=== PATIENT | female | born 1950 | race Caucasian/White ===

== ENCOUNTER 2017-06-08 23:09 | Emergency (ER) | payer BC, MEDICARE ==
--- NOTE | 2017-06-08 23:52 | ED ---
Nausea/Vomiting/Diarrhea HPI - General Chief complaint: Nausea/Vomiting/Diarrhea Stated complaint: Vomiting Time Seen by Provider: 06/08/17 23:27 Source: patient Mode of arrival: ambulatory Limitations: no limitations - History of Present Illness Initial comments: This patient is a 66-year-old woman who presents to be evaluated for which she is referring to as diarrhea. She states she has been having about 3 bowel movements a day that she describes as being very soft but not exactly liquid. She states that she did have rectopexy surgery for prolapse performed at [facility] and this was approximately days ago. The patient states that she is not having abdominal pain. She is not having any concerning signs or symptoms related to her incision site. She does have some perianal irritation after having the bowel movements, that she has been applying an appointment to. The patient did have a course of antibiotics while in the hospital. Patient denies fever or chills, vomiting, abdominal pain, or other symptoms. MD complaint: diarrhea -: days(s) Description of Diarrhea: other (Soft stools) Associated Abdominal Pain: No Worsens with: none Context: history of abdominal surgery - Related Data Previous Rx's Medication Instructions Recorded Nystatin 100,000 Unit/ml Susp 5 ml PO QID #100 ml 06/09/17 [Mycostatin Oral Susp] Allergies Allergy/AdvReac Type Severity Reaction Status Date / Time No Known Allergies Allergy Verified 06/08/17 23:20 Review of Systems ROS Statement: Those systems with pertinent positive or pertinent negative responses have been documented in the HPI. ROS Other: All systems not noted in ROS Statement are negative. Constitutional: Denies: fever, chills ENT: Reports: throat pain Respiratory: Denies: cough, dyspnea Cardiovascular: Denies: chest pain, palpitations, edema, syncope Gastrointestinal: Reports: diarrhea. Denies: abdominal pain, nausea, vomiting, constipation, hematemesis, melena, hematochezia Genitourinary: Denies: dysuria, hematuria Musculoskeletal: Denies: back pain Skin: Denies: rash Neurological: Denies: headache, weakness, numbness Past Medical History Past Medical History: Deep Vein Thrombosis (DVT), Hyperlipidemia Additional Past Medical History / Comment(s): rectal prolapse. osteoporosis. arthritis. environmental allergies. hypothyroidism. History of Any Multi-Drug Resistant Organisms: None Reported Past Surgical History: Hysterectomy, Tubal Ligation Additional Past Surgical History / Comment(s): rectopexy. D&Cx2. bilateral breast biopsy. colonoscopy. varicose veins. Past Psychological History: No Psychological Hx Reported Smoking Status: Never smoker Past Alcohol Use History: None Reported Past Drug Use History: None Reported General Exam Limitations: no limitations General appearance: alert, in no apparent distress Head exam: Present: atraumatic, normocephalic Eye exam: Present: normal appearance. Absent: scleral icterus, conjunctival injection ENT exam: Present: mucous membranes dry Neck exam: Present: normal inspection, full ROM Respiratory exam: Present: normal lung sounds bilaterally. Absent: respiratory distress, wheezes, rales, rhonchi, stridor Cardiovascular Exam: Present: regular rate, normal rhythm, normal heart sounds. Absent: systolic murmur, diastolic murmur, rubs, gallop GI/Abdominal exam: Present: soft. Absent: distended, tenderness, guarding, rebound, rigid, mass Rectal exam: Present: normal inspection Extremities exam: Present: normal inspection, normal capillary refill. Absent: pedal edema, calf tenderness Back exam: Present: normal inspection. Absent: CVA tenderness (R), CVA tenderness (L) Neurological exam: Present: alert Skin exam: Present: warm, dry, intact, normal color. Absent: rash Course Vital Signs 06/08/17 06/09/17 23:14 01:09 Temperature 98.4 F Pulse Rate 99 81 Respiratory 16 18 Rate Blood Pressure 139/63 134/81 O2 Sat by Pulse 100 99 Oximetry Medical Decision Making - Lab Data Result diagrams: 06/08/17 23:31 06/08/17 23:31 Lab Results 06/08/17 06/08/17 06/08/17 Range/Units 00:00 00:00 23:31 WBC 4.6 (3.8-10.6) k/uL RBC 2.95 L (3.80-5.40) m/uL Hgb 9.7 L (11.4-16.0) gm/dL Hct 29.3 L (34.0-46.0) % MCV 99.4 (80.0-100.0) fL MCH 32.8 (25.0-35.0) pg MCHC 33.0 (31.0-37.0) g/dL RDW 15.0 (11.5-15.5) % Plt Count 328 (150-450) k/uL Neutrophils % 67 % Lymphocytes % 19 % Monocytes % 7 % Eosinophils % 5 % Basophils % 0 % Neutrophils # 3.1 (1.3-7.7) k/uL Lymphocytes # 0.9 L (1.0-4.8) k/uL Monocytes # 0.3 (0-1.0) k/uL Eosinophils # 0.2 (0-0.7) k/uL Basophils # 0.0 (0-0.2) k/uL Macrocytosis Slight Sodium (137-145) mmol/L Potassium (3.5-5.1) mmol/L Chloride (98-107) mmol/L Carbon Dioxide (22-30) mmol/L Anion Gap mmol/L BUN (7-17) mg/dL Creatinine (0.52-1.04) mg/dL Est GFR (MDRD) Af Amer (>60 ml/min/1.73 sqM) Est GFR (MDRD) Non-Af (>60 ml/min/1.73 sqM) Glucose (74-99) mg/dL Calcium (8.4-10.2) mg/dL Total Bilirubin (0.2-1.3) mg/dL AST (14-36) U/L ALT (9-52) U/L Alkaline Phosphatase (38-126) U/L Total Protein (6.3-8.2) g/dL Albumin (3.5-5.0) g/dL Stool Occult Blood Negative (Negative) C. difficile (EIA) Intrp Negative (Negative) 06/08/17 Range/Units 23:31 WBC (3.8-10.6) k/uL RBC (3.80-5.40) m/uL Hgb (11.4-16.0) gm/dL Hct (34.0-46.0) % MCV (80.0-100.0) fL MCH (25.0-35.0) pg MCHC (31.0-37.0) g/dL RDW (11.5-15.5) % Plt Count (150-450) k/uL Neutrophils % % Lymphocytes % % Monocytes % % Eosinophils % % Basophils % % Neutrophils # (1.3-7.7) k/uL Lymphocytes # (1.0-4.8) k/uL Monocytes # (0-1.0) k/uL Eosinophils # (0-0.7) k/uL Basophils # (0-0.2) k/uL Macrocytosis Sodium 134 L (137-145) mmol/L Potassium 3.7 (3.5-5.1) mmol/L Chloride 99 (98-107) mmol/L Carbon Dioxide 26 (22-30) mmol/L Anion Gap 9 mmol/L BUN 8 (7-17) mg/dL Creatinine 0.70 (0.52-1.04) mg/dL Est GFR (MDRD) Af Amer >60 (>60 ml/min/1.73 sqM) Est GFR (MDRD) Non-Af >60 (>60 ml/min/1.73 sqM) Glucose 109 H (74-99) mg/dL Calcium 9.6 (8.4-10.2) mg/dL Total Bilirubin 1.1 (0.2-1.3) mg/dL AST 26 (14-36) U/L ALT 44 (9-52) U/L Alkaline Phosphatase 70 (38-126) U/L Total Protein 6.6 (6.3-8.2) g/dL Albumin 4.1 (3.5-5.0) g/dL Stool Occult Blood (Negative) C. difficile (EIA) Intrp (Negative) Disposition Clinical Impression: Diarrhea following gastrointestinal surgery Disposition: HOME SELF-CARE Condition: Good Instructions: Acute Diarrhea (ED) Prescriptions: Nystatin 100,000 Unit/ml Susp [Mycostatin Oral Susp] 5 ml PO QID #100 ml Referrals: Carrillo Dalton MD [Primary Care Provider] - 1-2 days
[2017-06-09 00:08] LABS: Basophils % (A) 0 %; CH 32.5; CHCM 32.9; Eosinophils # (A) 0.2 k/uL (0-0.7); Eosinophils % (A) 5 %; HCT 29.3 % (34.0-46.0); HDW 2.62; HGB 9.7 gm/dL (11.4-16.0); Luc # (Auto) 0.12; Luc % (Auto) 3; Lymphocytes # (A) 0.9 k/uL (1.0-4.8); Lymphocytes % (A) 19 %; MCH 32.8 pg (25.0-35.0); MCV 99.4 fL (80.0-100.0); Macrocytosis Slight; Monocytes # (A) 0.3 k/uL (0-1.0); Monocytes % (A) 7 %; Neutrophils # (A) 3.1 k/uL (1.3-7.7); Neutrophils % (A) 67 %; RBC 2.95 m/uL (3.80-5.40); WBC 4.6 k/uL (3.8-10.6); WBC (Perox) 4.77
[2017-06-09 00:16] LABS: ALT 44 U/L (9-52); AST 26 U/L (14-36); Alkaline Phosphatase 70 U/L (38-126); Anion Gap 9 mmol/L; Blood Urea Nitrogen 8 mg/dL (7-17); Calcium 9.6 mg/dL (8.4-10.2); Carbon Dioxide 26 mmol/L (22-30); Chloride 99 mmol/L (98-107); Glucose 109 mg/dL (74-99); Non-African American GFR(MDRD) >60 (>60 ml/min/1.73 sqM); Potassium 3.7 mmol/L (3.5-5.1); Sodium 134 mmol/L (137-145); Total Bilirubin 1.1 mg/dL (0.2-1.3); Total Protein 6.6 g/dL (6.3-8.2)
[2017-06-09 01:11] VITALS: RESP 18
[2017-06-09 03:00] VITALS: BP 116/71; PULSE 76; TEMP 98.7
== END 2017-06-09 02:55 | disposition home or self-care (01) ==
LOC: EC 23:09
DX: K91.1 Postgastric surgery syndromes (principal)
CPT/HCPCS: 36415; 80053; 82272; 85025; 87045; 87046; 87077; 87186; 87324; 89055; 99284

== ENCOUNTER → 2019-02-19 | Outpatient (CLI) | payer MEDICARE ==
[2019-02-19 09:22] LABS: African American GFR (CKD) >90 (>60 ml/min/1.73 sqM); Blood Urea Nitrogen 9 mg/dL (7-17)
--- NOTE | 2019-02-19 16:28 | CT ---
EXAMINATION TYPE: CT soft tissue neck w con DATE OF EXAM: 02/19/2019 COMPARISON: None HISTORY: Lt neck pain CT DLP: 245.4 mGycm CONTRAST: Patient injected with 100 mL of Isovue 300. TECHNIQUE: Axial images at 3 mm thick sections. Reconstructed images in the coronal plane and sagitt al plane are reviewed. FINDINGS: Limited CT sections are obtained the lung apices. Some mild scarring appears to be at the bilateral lung apices. CT neck: The torus tubarius and fossa of Rosenmuller are normal. Industrial [employer] spaces are normal. Para nasal sinuses and mastoid air cells are clear. Parotid glands appear normal and symmetrical. Submandibular glands, are normal. Parapharyngeal spac es are normal. No suspicious adenopathy is evident. The hypopharynx appears within normal limits. Vocal cord level appear also the time of this exam. Thyroid is not identified. Osseous structures are normal. IMPRESSIONS: 1. No suspicious left neck mass.
== END | disposition home or self-care (01) ==
LOC: RADCTMAIN 08:21
PROVIDERS: ATTEND Otolaryngology
DX: R22.1 Localized swelling, mass and lump, neck (principal); M54.2 Cervicalgia
CPT/HCPCS: 82565; 84520; 70491; 36415; Q9967

== ENCOUNTER → 2019-03-11 | Outpatient (CLI) | payer MEDICARE ==
[2019-03-12 11:39] LABS: Cow's Milk IgE Class CLASS 0; Egg White IgE <0.35 kU/L (<0.35); Peanut IgE <0.35 kU/L (<0.35); Potato IgE <0.35 kU/L (<0.35); Potato IgE Class CLASS 0; Soybean IgE <0.35 kU/L (<0.35)
== END | disposition home or self-care (01) ==
LOC: LABWHC1 09:58
PROVIDERS: ATTEND Otolaryngology
DX: J30.89 Other allergic rhinitis (principal)
CPT/HCPCS: 36415; 86003

== ENCOUNTER 2019-06-17 19:53 | Emergency (ER) | payer MEDICARE ==
[2019-06-17 19:59] VITALS: TEMP 97.9
[2019-06-17] MEDS ORDERED: MORPHINE SULFATE 4 MG/ML SYRINGE IM STA ×2 (20:22→21:58)
--- NOTE | 2019-06-17 20:38 | ED ---
General Adult HPI <Danny Nielson - Last Filed: 06/17/19 22:38> - General Source: patient, RN notes reviewed, old records reviewed Mode of arrival: ambulatory Limitations: no limitations <Migue Tariq - Last Filed: 06/17/19 22:59> - General Chief complaint: Fall Stated complaint: Shoulder/wrist Injury Time Seen by Provider: 06/17/19 20:05 - History of Present Illness Initial comments: 68-year-old female patient presents to ED for chief complaint of fall and left shoulder forearm wrist pain. Patient reports that she was walking and slipped falling on her left shoulder. Patient chief complaint of left shoulder pain as well as left dorsal wrist pain. Patient does report that the pain radiates up and down. Denies any trauma to the head or neck. Denies any use of blood thinners. Denies any other complaints. Systemic: Pt denies fatigue, fever/chills, rash. Pt denies weakness, night sweat s, weight loss. Neuro: Pt denies headache, visual disturbances, syncope or pre-syncope. HEENT: Pt denies ocular discharge or irritation, otalgia, rhinorrhea, pharyngitis or notable lymphadenopathy. Cardiopulmonary: Pt denies chest pain, SOB, heart palpitations, dyspnea on exertion. Abdominal/GI: Pt denies abdominal pain, n/v/d. : Pt denies dysuria, burning w/ urination, frequency/urgency. Denies new onset urinary or bowel incontinence. MSK: Pt denies myalgia, loss of strength or function in extremities. Neuro: Pt denies new onset weakness, paresthesias. (Migue Tariq) - Related Data Previous Rx's Medication Instructions Recorded Nystatin 100,000 Unit/ml Susp 5 ml PO QID #100 ml 06/09/17 [Mycostatin Oral Susp] Hydrocodone/Acetaminophen [Sizerock 1 each PO Q6HR PRN #12 tab 06/17/19 5-325] Allergies Allergy/AdvReac Type Severity Reaction Status Date / Time No Known Allergies Allergy Verified 06/17/19 20:00 Review of Systems ROS Other: All systems not noted in ROS Statement are negative. <Danny Nielson - Last Filed: 06/17/19 22:38> ROS Other: All systems not noted in ROS Statement are negative. <Migue Tariq - Last Filed: 06/17/19 22:59> ROS Statement: Those systems with pertinent positive or pertinent negative responses have been documented in the HPI. Past Medical History Past Medical History: Deep Vein Thrombosis (DVT), Hyperlipidemia Additional Past Medical History / Comment(s): rectal prolapse. osteoporosis. arthritis. environmental allergies. hypothyroidism. History of Any Multi-Drug Resistant Organisms: None Reported Past Surgical History: Hysterectomy, Tubal Ligation Additional Past Surgical History / Comment(s): rectopexy. D&Cx2. bilateral breast biopsy. colonoscopy. varicose veins. Past Psychological History: No Psychological Hx Reported Smoking Status: Never smoker Past Alcohol Use History: None Reported Past Drug Use History: None Reported <Migue Tariq - Last Filed: 06/17/19 22:59> General Exam Limitations: no limitations <Migue Tariq - Last Filed: 06/17/19 22:59> - General Exam Comments Initial Comments: Constitutional: NAD, AOX3, Pt has pleasant affect. HEENT: NC/AT, trachea midline, neck supple, no lymphadenopathy. Posterior pharynx non erythematous, without exudates. External ears appear normal, without discharge. Mucous membranes moist. Eyes PERRLA, EOM intact. There is no scleral icterus. No pallor noted. Cardiopulmonary: RRR, no murmurs, rubs or gallops, no JVD noted. Lungs CTAB in anterior and posterior kasper. No peripheral edema. Abdominal exam: Abdomen soft and non-distended. Abdomen non-tender to palpation in all 4 quadrants. Bowel sounds active in LLQ. No hepatosplenomegaly. No ecchymosis Neuro: CN II-XII grossly intact. No nuchal rigidity. No raccon eyes, no gee sign, no hemotympanum. No cervical spinal tenderness. MSK: Left anterior shoulder tender to palpation. Dorsal and radius tender to palpation. Neurovascularly intact. Patient placed in a sugar tong splint. Neurovascular intact after splint placement. No posterior calf tenderness bilaterally, homans sign negative bilaterally. Posterior tibialis and radial pulse +2 bilaterally. Sensation intact in upper and lower extremities. Full active ROM in upper and lower extremities, 5/5 stregnth. (Migue Tariq) Course <Danny Nielson - Last Filed: 06/17/19 22:38> Vital Signs 06/17/19 19:54 Temperature 97.9 F Pulse Rate 80 Respiratory 20 Rate Blood Pressure 166/91 O2 Sat by Pulse 100 Oximetry - Reevaluation(s) Reevaluation #1: 06/17/19 22:38 PA supervision: I personally do a [id number] evaluation the patient and did discuss the findings with her . Patient is sustaining a fall with a fractured left humeral neck as well as a fractured distal radius and ulnar styloid. I did discuss case with Dr. Bautista. Patient will be splinted and placed in a sling and follow-up in the morning in the office. Neurovascularly the patient is intact she has function of her hand and fingers with again no neurovascular deficits. She is in agreement with this plan. (Danny Nielson) Medical Decision Making <Migue Tariq - Last Filed: 06/17/19 22:59> - Medical Decision Making 68-year-old female patient presents to ED for chief complaint of fall and left shoulder forearm wrist pain. Patient reports that she was walking and slipped falling on her left shoulder. Patient chief complaint of left shoulder pain as well as left dorsal wrist pain. Patient does report that the pain radiates up and down. Denies any trauma to the head or neck. Denies any use of blood thinners. Denies any other complaints. Patient vital signs stable, afebrile. Physical exam displayed dorsal distal wrist ulna and radius tender to palpation. Anterior shoulder tenderness to palpation. Plain films displayed a humeral neck fracture. Distal radius fracture. Ulnar styloid process fracture. Case was discussed and pt seen by Dr. Nielson who called Dr. Bautista who reviewed films. He recommended a splint, sling, follow-up in office tomorrow. Pt DC with analgesia and close outpatient follow up. (Migue Tariq) Disposition <Danny Nielson - Last Filed: 06/17/19 22:38> Is patient prescribed a controlled substance at d/c from ED?: Yes When asked, does pt state using other controlled substances?: No If prescribed controlled substance>3 days was MAPS reviewed?: Prescribed <3 Days If opioid is for acute pain is fill amount 7 days or less?: Yes If Rx opioid, was Start Talking consent form obtained?: Yes <Migue Tariq - Last Filed: 06/17/19 22:59> Clinical Impression: Humerus fracture, Distal radius fracture Disposition: HOME SELF-CARE Condition: Stable Instructions (If sedation given, give patient instructions): Proximal Humerus Fracture (ED), Arm Fracture in Adults (ED) Additional Instructions: Continue to wear sling and splint. Follow-up with Dr. Bautista tomorrow. Follow up with PCP in 1-2 days. Return to ER if condition worsens in anyway. Prescriptions: Hydrocodone/Acetaminophen [Sizerock 5-325] 1 each PO Q6HR PRN #12 tab PRN Reason: Pain Referrals: Carrillo Dalton MD [Primary Care Provider] - 1-2 days Bridger Bautista MD [STAFF PHYSICIAN] - 1-2 days
--- NOTE | 2019-06-17 21:21 | XR ---
EXAMINATION TYPE: XR shoulder complete LT DATE OF EXAM: 06/17/2019 COMPARISON: NONE HISTORY: Pain TECHNIQUE: 3 views FINDINGS: There is impacted comminuted fracture of the humeral neck. Fragments are displaced up to 14 mm. There is no dislocation. Scapula is intact. IMPRESSION: Impacted comminuted humeral neck fracture.
--- NOTE | 2019-06-17 21:21 | XR ---
EXAMINATION TYPE: XR humerus LT DATE OF EXAM: 06/17/2019 COMPARISON: NONE HISTORY: Pain TECHNIQUE: 2 views FINDINGS: There is impacted comminuted humeral neck fracture. There is no dislocation. Elbow joint ap pears intact. IMPRESSION: Acute comminuted humeral neck fracture.
--- NOTE | 2019-06-17 21:22 | XR ---
EXAMINATION TYPE: XR forearm LT DATE OF EXAM: 06/17/2019 COMPARISON: NONE HISTORY: Pain. Fall. TECHNIQUE: 2 views FINDINGS: There is impacted comminuted fracture of the distal radius. There is posterior displacement of the distal fragments 6 mm. There is no dislocation. Elbow joint appears intact. IMPRESSION: Impacted and mildly displaced fracture distal radius.
--- NOTE | 2019-06-17 21:24 | XR ---
EXAMINATION TYPE: XR hand complete LT DATE OF EXAM: 06/17/2019 COMPARISON: NONE HISTORY: Pain TECHNIQUE: 3 views FINDINGS: There is impacted comminuted fracture distal radius. There is no dislocation. There is some posterior displacement of the distal fragments. There is nondisplaced fracture ulnar styloid process . IMPRESSION: Fractures distal radius and ulna as above. Radius fracture shows comminution and impactio n.
--- NOTE | 2019-06-17 21:25 | XR ---
EXAMINATION TYPE: XR chest 1V DATE OF EXAM: 06/17/2019 COMPARISON: 07/11/2016 HISTORY: Fall. Pain. TECHNIQUE: Single frontal view of the chest is obtained. FINDINGS: Heart is normal. Lungs are clear of infiltrate. There is impacted humeral neck fracture. T here is no pleural effusion. There are no hilar masses. IMPRESSION: No active cardiopulmonary disease. Left humeral neck fracture.
[2019-06-17] MEDS ORDERED: ACET/COD 300 MG/30 MG STARTER PACK 6 TAB BTL PO STA (22:59)
[2019-06-17 23:18] VITALS: BP 165/80; PULSE 75; RESP 18
== END 2019-06-17 23:18 | disposition home or self-care (01) ==
LOC: EC 19:53
DX: S42.212A Unspecified displaced fracture of surgical neck of left humerus, initial encounter for closed fracture (principal); S52.512A Displaced fracture of left radial styloid process, initial encounter for closed fracture; Z86.718 Personal history of other venous thrombosis and embolism; W01.0XXA Fall on same level from slipping, tripping and stumbling without subsequent striking against object, initial encounter; Y93.01 Activity, walking, marching and hiking
CPT/HCPCS: 29125; 71045; 96372; 99284

== ENCOUNTER → 2019-06-19 | Outpatient (CLI) | payer MEDICARE ==
--- NOTE | 2019-06-19 21:37 | CT ---
EXAMINATION TYPE: CT wrist LT wo con DATE OF EXAM: 06/19/2019 COMPARISON: Left hand and forearm x-ray 2 days earlier. HISTORY: Left wrist pain after fall x2 days ago. CT DLP: 195.3 mGycm Automated exposure control for dose reduction was used. FINDINGS: Correlating with x-ray there is comminuted minimally displaced acute intra-articular fracture through the distal radial meta-epiphysis. There are at least 3 distinct fracture fragments with smaller line ar fracture fragment noted centrally sagittal image 19. Fracture line extends to the radial lunate lorenza int sagittal image 20. No scapholunate or lunotriquetral widening. There is 4 mm avulsion type fractu re from ulnar styloid coronal image 17. Carpal joint spaces are preserved without additional fracture. Moderate to severe narrowing triscaphe joint is present. Mild to moderate narrowing at the base of metatarsals is noted. Overlying cast mat erial is present. Moderate diffuse subcutaneous edema is seen. IMPRESSION: As above.
== END | disposition home or self-care (01) ==
LOC: RADCTMAIN 15:59
PROVIDERS: ATTEND Orthopaedic Surgery Sports Medicine
DX: S62.102A Fracture of unspecified carpal bone, left wrist, initial encounter for closed fracture (principal); S52.592A Other fractures of lower end of left radius, initial encounter for closed fracture; M25.832 Other specified joint disorders, left wrist

== ENCOUNTER → 2019-06-20 | Outpatient (CLI) | payer MEDICARE | END | disposition home or self-care (01) | LOC: LABWHC1 10:57 | PROVIDERS: ATTEND Orthopaedic Surgery | DX: S52.572A Other intraarticular fracture of lower end of left radius, initial encounter for closed fracture (principal) | CPT/HCPCS: 36415; 82306 ==

== ENCOUNTER 2019-06-24 05:59 | Day surgery (SDC) | payer MEDICARE ==
[~2019-06-24 05:59] MED LIST: DEXAMETHASONE SOD PHOSPHATE 10 MG/ML 1 ML VIAL IV ONE; HYDROmorphone 0.5 MG/0.5 ML SYRINGE IVP PRN; LACTATED RINGERS 1,000 ML IV SCH; LIDOCAINE 1% 20 ML VIAL (10MG/ML) FOR IV START INTRADERMA PRN; MIDAZOLAM 2 MG/2 ML VIAL IV PRN; ONDANSETRON 4 MG/2 ML VIAL IVP ONE
[2019-06-24 06:31] VITALS: TEMP 98.6
[2019-06-24] MEDS ORDERED: SCOPOLAMINE 1.5MG/72HR PATCH TRANSDERM ONE (06:37)
--- NOTE | 2019-06-24 08:05 | P.ANPRN ---
Procedure Note - Anesthesia - Nerve Block Performed Left Supraclavicular Single Date of Procedure: 06/24/19 Procedure Start Time: 07:38 Procedure Stop Time: 07:50 Location of Patient: PreOp Indication: Acute Post-Operative Pain, Requested by Surgeon Specifically requested for management of pain by : Vinny Brandt Sedation Type: Sedate with meaningful contact maintained Preparation: Sterile Prep Position: Supine Catheter: None Needle Types: Pajunk Needle Gauge: 21 Ultrasound used to visualize needle placement: Yes Ultrasound used to observe medication spread: Yes Injectate: 0.5% Ropivacaine (see comment for volume) (20cc + Decadron 4 mg) Blood Aspirated: No Pain Paresthesia on Injection Noted: No Resistance on Injection: Normal Image Stored and Saved: Yes Events: Uneventful and Well Tolerated
[2019-06-24] MEDS ORDERED: MIDAZOLAM 2 MG/2 ML VIAL ONE (08:23)
[2019-06-24] MEDS ORDERED: ROPIVACAINE 5 MG/ML 30 ML VIAL ONE (08:23)
[2019-06-24] MEDS ORDERED: ePHEDrine SULFATE/0.9% NACL/PF 50 MG/5 ML SYRINGE IV ONE (08:23)
[2019-06-24] MEDS ORDERED: diphenhydrAMINE 50 MG/ML 1 ML VIAL ONE (08:23)
[2019-06-24] MEDS ORDERED: PROPOFOL 10 MG/ML 20 ML VIAL IV ONE (08:23)
[2019-06-24] MEDS ORDERED: ROPIVACAINE 5 MG/ML 30 ML VIAL MISCELLANE ONE (11:32)
[2019-06-24] MEDS ORDERED: LIDOCAINE 1%-EPI 1:100,000 20 ML VIAL SQ ONE (11:32)
[2019-06-24 12:05] VITALS: RESP 18
--- NOTE | 2019-06-24 12:21 | FL ---
EXAMINATION TYPE: FL guidance operating room DATE OF EXAM: 06/24/2019 HISTORY: Flouroscopy time 2 minutes and 6 seconds of fluoroscopy provided. IMPRESSION: 1. Fluoroscopy time.
[2019-06-24 12:23] VITALS: BP 139/88; PULSE 95
--- NOTE | 2019-06-24 12:23 | XR ---
EXAMINATION TYPE: XR wrist limited LT DATE OF EXAM: 06/24/2019 COMPARISON: NONE TECHNIQUE: 4 views submitted HISTORY: Post op FINDINGS: There is postsurgical change in near anatomic alignment. There is soft tissue edema and emphysema. IMPRESSION: 1. Postoperative change. Appears in near-anatomic alignment
--- NOTE | 2019-06-29 13:21 | P.OP ---
Date of Procedure: 06/24/19 Preoperative Diagnosis: 1. Displaced intra-articular left distal radius fracture 2. Left proximal humerus fracture (4 part) Postoperative Diagnosis: 1. Displaced intra-articular left distal radius fracture 2. Left proximal humerus fracture (4 part) Procedure(s) Performed: 1. Open reduction and internal fixation of left intra-articular distal radius fracture (greater than 3 parts) 2. Fluoroscopic examination under anesthesia - left proximal humerus fracture Implants: [employer] Acu-Loc 2 left, narrow volar distal radius plate with locking and cortical screws Anesthesia: MAC, regional Surgeon: Vinny Brandt [employer] Equipment Operator #1: Kylah Abraham Estimated Blood Loss (ml): 5 Condition: stable Disposition: same day Indications for Procedure: The patient is a pleasant 68-year-old female who sustained Fractures of her left distal radius and left proximal humerus after slipping on black ice in a parking. Treatment options (and associated risks and benefits) were discussed in the office. Surgical treatment was recommended for the radius and nonsurgical treatment for the proximal humerus. We discussed the possibility for further displacement of the proximal humerus fracture fragments as a result of necessary intraoperative positioning to fix the wrist fracture. She expressed understanding and wished to proceed with surgery as discussed. Consent forms were signed. The operative site was confirmed and marked. Description of Procedure: The patient was administered a regional nerve block by the anesthesia team and was then brought to the operating suite. She was transferred to the operating table and positioned supine with the operative limb on an arm board. All bony prominences were well padded. Anesthesia was administered uneventfully. Prophylactic IV antibiotics were administered. A tourniquet was placed on the left arm, which was then prepped and draped in standard, sterile fashion. A timeout was performed, confirming patient identifiers, the operative side, the site and the procedure to be performed: all team members expressed agreement. The limb was exsanguinated with an Esmarch and the tourniquet was inflated. An extended volar FCR approach was utilized. The skin was incised sharply, cur ving gently across the volar wrist crease. The subcutaneous tissues were spread, coagulating superficial vessels as needed. The radial artery was identified and protected throughout the case. The FCR sheath was incised and the tendon was mobilized. Finger dissection was used to mobilize the flexor tendons. The distal aspect of the FPL origin was gently elevated to expose the proximal radial metaphysis. The pronator quadratus was identified. The fracture had caused a traumatic transverse rent that was sharply extended proximally along the radial border. The muscle was subperiosteally elevated in an ulnar direction. The transitional fiber zone was sharply raised as an ulnarly-based flap. The radial septum was released to expose the brachioradialis insertion and first dorsal compartment tendons. The brachioradialis tendon was mobilized, but was not released. The fracture site was visualized. There was a large radial styloid component with a separate volar metaphyseal fragment. Preop CT scan demonstrated a large displaced fragment of the dorsal ulnar corner and central articular depression. Bone holding forceps were used to rotate the radial metaphysis and expose the articular fragments. Axial traction was applied and a [place] elevator was used to mobilize and elevate the impacted central fragments. The radial shaft was rotated back in place. X-rays showed good initial reduction. A 0.062 K wire was inserted percutaneously into the radial styloid and advanced across the metaphysis for provisional reduction. Residual shortening remained. The wire was backed out across the fracture site. A second wire was inserted into the radial styloid fracture. A combination of axial traction and ulnar deviation was applied, using the K wires as joysticks. The wires were then advanced into the metaphysis. Repeat imaging demonstrated articular incongruity. The wires were again backed out. Axial traction was reapplied and a dental pick was used to mobilize the volar metaphyseal fragment. A [place] was inserted between the fragments to hold the articular surface elevated and the K wires were readvanced. A pointed reduction clamp was applied to the volar lunate fossa and clamped to the radial edge of the metaphysis. A third K wire was driven transversely across the radial styloid to secure this fragment. Repeat images showed improved alignment on orthogonal views. The plate was selected, based on the patients anatomy and fracture pattern, and was positioned on the volar radius. It was provisionally pinned in place with K- wires. A cortical screw was drilled, measured and inserted into the oblong hole of the shaft. The orientation of the articular fracture lines required very precise plate positioning. The proximal screw was loosened; plate position was readjusted and confirmed on imaging. Locking screws were then drilled, measured and inserted distally, confirming length and trajectory with fluoroscopy. The most proximal ulnar hole of the distal locking screws was directly over a fracture line and was left empty. After plate repositioning, the shaft screw in the oblong hole no longer had solid purchase. Two cortical screws were drilled and inserted into the remaining plate holes in the shaft, achieving solid fixation. The central screw was removed. The provisional and percutaneous K-wires were removed. Final x-rays were obtained which revealed satisfactory reduction of the fracture. A 20 inclined lateral view was obtained, confirming extra-articular screw placement. The wrist was then ranged under live fluoroscopy - no motion of the fracture fragments or fixation construct was appreciated. There was no crepitus or gross instability. The wound was thoroughly irrigated with normal saline. The pronator quadratus and transitional fiber zone were loosely repaired over the plate with interrupted 2-0 Vicryl sutures. The tourniquet was released after 128 minutes at 250 mmHg. Good hemostasis was obtained with held pressure and electrocautery. The subcutaneous tissues were reapproximated with interrupted 3-0 Vicryl suture. The incision was closed with interrupted 4-0 nylon sutures. Local anesthetic with epinephrine was injected into the perioperative subcutaneous tissues for adjunctive postoperative pain control and hemostasis. A sterile dressing was applied followed by a resting volar plaster splint. All sponge, needle and instrument counts were correct at the end of the case. After splint application, the proximal humerus was reevaluated with fluoroscopy. Good overall alignment was maintained without significant interval change in position of the fragments. Gentle mobilization of the shoulder did not result in discernable fracture displacement. The patient tolerated the procedure well. She was transferred to a hospital bed and taken to the recovery room in stable condition.
== END 2019-06-24 12:59 | disposition home or self-care (01) ==
LOC: OR 05:59
PROVIDERS: ATTEND Orthopaedic Surgery
DX: S52.92XA Unspecified fracture of left forearm, initial encounter for closed fracture (principal); Z90.710 Acquired absence of both cervix and uterus; Z98.51 Tubal ligation status; Z98.890 Other specified postprocedural states; E78.5 Hyperlipidemia, unspecified; Z86.718 Personal history of other venous thrombosis and embolism; E07.9 Disorder of thyroid, unspecified; Z79.890 Hormone replacement therapy; Z79.899 Other long term (current) drug therapy
CPT/HCPCS: 25609; 64415; 93005; 76942; 73100; C1713; J2250; J1200; J1100; J0690; J2405; J2795; J2704; 64413

== ENCOUNTER → 2023-11-14 | Outpatient (CLI) | payer MEDICARE ==
--- NOTE | 2023-11-14 13:44 | US ---
EXAMINATION TYPE: US arterial LE single level DATE OF EXAM: 11/14/2023 1:25 PM CLINICAL INDICATION: Female, 73 years old with history of M79.89 SWELLING LOWER LEGS; Swelling. Patie nt gets cramping in her legs and cold feet. History of: Smoker: Never Hypertension: Yes Diabetic: No Hyperlipidemia: Yes TIA/CVA: No Previous Vascular Surgery: Vein stripping CAD: No LA: No Vascular Ulcers: No Claudication: None Gangrene: None Doppler Waveforms: Right: Biphasic Left: Biphasic Pulse Volume Recording: Pressure Gradients: Right Brachial Pressure: 134 Left Brachial Pressure: 130 Ankle-Brachial Indices: Right: 1.01 Left: 1.03 (Vessel hardening > 1.4; Normal 0.9 - 1.4, Moderate 0.7 - 0.9, Severe 0.5-0.7) Toe Brachial Indices: Right: 0.79 Left: 0.68 IMPRESSION: Ankle-brachial indices within normal limits bilaterally.
== END | disposition home or self-care (01) ==
LOC: RADUSWWP 12:52
PROVIDERS: ATTEND Pediatrics
DX: M79.89 Other specified soft tissue disorders (principal); E78.5 Hyperlipidemia, unspecified; I10 Essential (primary) hypertension
CPT/HCPCS: 93922